=== PATIENT | male | born 1980 | race Caucasian/White ===

== ENCOUNTER 2024-01-12 17:41 | Emergency (ER) | payer SELFPAY ==
[~2024-01-12] VITALS: Ht 167.6 cm; Wt 73.1 kg
[2024-01-12 17:41] VITALS: BP 137/79; TEMP 99.2; O2SAT 98
[2024-01-12] MEDS ORDERED: CEPH500C PO (18:05)
== END 2024-01-12 20:20 | disposition left against medical advice (07) ==
LOC: M ED 17:41
DX: Z53.21 Procedure and treatment not carried out due to patient leaving prior to being seen by health care provider (principal)

== ENCOUNTER 2025-03-26 08:16 | Day surgery (SDC) | payer OTHER ==
[~2025-03-26] VITALS: Ht 177.8 cm; Wt 75.1 kg
[2025-03-26] MEDS: CelecoXIB 400 MG CAP PO ONE (06:00)
[~2025-03-26 08:16] MED LIST: ACETAMINOPHEN 1000MG/100ML IV BAG As Ordered ONE; CEPH500C PO; GLYCOPYRROLATE INJ 0.2 MG/ML 2 ML VIAL As Ordered ONE; KETOROLAC 30 MG/ML 1 ML VIAL As Ordered ONE; LIDOCAINE 2% 100 MG/5 ML SDV (FOR ANES.) As Ordered ONE; MIDAZOLAM INJ 2 MG/2 ML VIAL As Ordered ONE; ONDANSETRON 4MG 2ML VIAL As Ordered ONE; ROCURONIUM BROMIDE 50MG/5ML VIAL As Ordered ONE; SUGAMMADEX SODIUM 200 MG/2 ML VIAL As Ordered ONE; dexAMETHasone 4 MG/ML 1 ML VIAL As Ordered ONE
[2025-03-26] MEDS: LR 1,000 ML IV SCH (08:30)
[2025-03-26] MEDS: ceFAZolin SOD 2 GM IV ONCE IV ONE (10:15)
[2025-03-26] MEDS ORDERED: HYDROmorphone HCL 2 MG/ML 1 ML VIAL As Ordered ONE (10:33)
[2025-03-26] MEDS: LIDOCAINE 1% SDV 30 ML VIAL As Ordered ONE (11:45)
[2025-03-26] MEDS ORDERED: HYDROMORPHONE HCL 0.5 MG/0.5 ML SYRINGE IV PRN (11:55)
[2025-03-26] MEDS ORDERED: ONDANSETRON 4MG 2ML VIAL IV PRN (11:55)
[2025-03-26] MEDS ORDERED: LR 1,000 ML IV SCH (11:55)
[2025-03-26 13:23] VITALS: BP 132/72; TEMP 96.6; O2SAT 96
== END 2025-03-26 13:32 | disposition home or self-care (01) ==
LOC: M SDC 08:16
PROVIDERS: ATTEND Surgery
DX: K40.30 Unilateral inguinal hernia, with obstruction, without gangrene, not specified as recurrent (principal); D17.6 Benign lipomatous neoplasm of spermatic cord; F17.220 Nicotine dependence, chewing tobacco, uncomplicated
CPT/HCPCS: 49650; 88304; C1781; J0131; J0665; J0688; J1100; J1171; J1596; J1885; J2250; J2405; J2765; J3010; S2900